=== PATIENT | male | born 1965 | race Caucasian/White ===

== ENCOUNTER 2017-05-22 09:56 | Emergency (ER) | payer OTHER ==
[2017-05-22 10:16] VITALS: BP 121/86; PULSE 65; RESP 16; TEMP 98.6; O2SAT 98
--- NOTE | 2017-05-22 11:33 | EDPHY ---
H & P Time Seen by Provider: 05/22/17 10:28 HPI/ROS: CHIEF COMPLAINT: Atraumatic right wrist pain HISTORY OF PRESENT ILLNESS: 52-year-old [id number] male complaining of atraumatic right wrist pain specifically the distal radius. No deformity. No paresthesia. No discoloration. No fever or chills. No nausea or vomiting no flu-like symptoms. PHYSICAL EXAM (Prior to examination, patient consented to physical exam, hands were washed and my usual and customary physical exam procedures followed) 1) GENERAL: Well-developed, well-nourished, alert and oriented. Appears to be in no acute distress. 2) HEAD: Normocephalic 3) HEENT: Pupils equal, round, reactive to light bilaterally. 4) LUNGS: Breathing comfortably. 5) MUSCULOSKELETAL: Tender to palpation anatomic snuffbox. No pain with axial loading of the joint spaces. Positive Evelyn. Soft compartments. Normal coloration. 6) SKIN: normal coloration. Normal temperature. 7) VASCULAR: pulses and cap refill present are brisk 8) NEUROLOGIC: Radial, ulnar, median nerve function intact with no deficits appreciated on exam DIFFERENTIAL DIAGNOSIS: in no particular order including but not limited to fracture, sprain, compartment syndrome, septic arthritis, gouty arthritis, crystalline arthritis, DJD Procedure: Splint A Velcro thumb spica splint was applied by ER digital field service technician. After application of the splint I returned and re-examined the patient. The splint was adequately immobilizing the joint and distal to the splint the patient's circulation and sensation were intact. Patient shows no signs of compartment syndrome. Was given orthopedic precautions. Smoking Status: Current every day smoker Constitutional: Initial Vital Signs Temperature (C) 37 C 05/22/17 10:13 Heart Rate 65 05/22/17 10:13 Respiratory Rate 16 05/22/17 10:13 Blood Pressure 121/86 H 05/22/17 10:13 O2 Sat (%) 98 05/22/17 10:13 O2 Delivery Mode Room Air Allergies/Adverse Reactions: No Known Allergies Allergy (Unverified 05/22/17 10:16) Home Medications: Medication Instructions Recorded NK [No Known Home Meds] 05/22/17 MDM/Departure - MDM Imaging Results: Imaging Impressions Wrist X-Ray 05/22/17 10:00 Impression: Mild degenerative changes described above. ED Course/Re-evaluation: Doubt septic arthritis. I do not think that arthrocentesis or MRI currently emergently indicated. I have recommended elevation, Velcro thumb spica, hand surgery follow-up. I offered analgesia which he declines. Care of patient under supervision of secondary supervising physician Dr Taylor . - Depart Disposition: Home, Routine, Self-Care Clinical Impression: Wrist pain, right Condition: Good Instructions: Arthralgia (ED) Additional Instructions: Return to the ER immediately if you experience discoloration, have worsening pain, numbness, tingling, or any other symptoms that concern you. If you received x-rays in the emergency department today, be advised, that ligamentous , tendon, muscular, and other non-bony injury cannot be fully ruled out. Try to keep your affected extremity elevated above the level of your chest, and keep cold packs on the affected area, for the next 48 hours. Referrals: Michael Flores MD [Medical Doctor] - 2-3 days without fail
== END 2017-05-22 11:46 | disposition home or self-care (01) ==
DX: M25.531 Pain in right wrist (principal); F17.200 Nicotine dependence, unspecified, uncomplicated
CPT/HCPCS: L3807